=== PATIENT | male | born 1975 | race Caucasian/White ===

== ENCOUNTER 2025-02-03 10:44 | Emergency (ER) | payer OTHER, SELFPAY ==
[2025-02-03 10:58] VITALS: BP 168/109; PULSE 84; RESP 16; TEMP 36.6; O2SAT 100
[2025-02-03 11:11] VITALS: BP 152/100
--- NOTE | 2025-02-03 11:23 | ED.GENADULT ---
HPI - General Adult General Chief complaint: Unspecified Stated complaint: High Blood Pressure Time Seen by Provider: 02/03/25 11:14 Source: patient and RN notes reviewed Mode of arrival: ambulatory Limitations: no limitations History of Present Illness HPI narrative: 50-year-old male patient presents today for a check on his blood pressure. He was at the dentist this morning and his blood pressure was measured to be 190/120. He was told to leave and come get his blood pressure rechecked at Urgent Care. Patient is having no symptoms. Upon arrival, his blood pressure was 168/109. About 15 minutes later it was 152/100. Patient states he typically gets very anxious while receiving medical care. He does not have a PCP. He has never been diagnosed with hypertension Related Data Home Medications ?Medication ?Instructions ?Recorded ?Confirmed ?Last Taken ?Type No Home Medications 02/03/25 02/03/25 Unknown History Allergies Allergy/AdvReac Type Severity Reaction Status Date / Time No Known Allergies Allergy Verified 02/03/25 11:00 [facility] At time of signature, I have reviewed and agree with nursing past medical, surgical, social and family history unless otherwise noted. Please see nursing chart for further information. There is no relevant family history pertinent to the presenting complaint Exam Narrative: GENERAL: Well-appearing, well-nourished, and in no acute distress. HEAD: Normocephalic, atraumatic. EYES: EOMI. No redness or drainage. Conjunctivae normal. ENT: Mucous membranes pink and moist. NECK: Normal AROM. CHEST: No respiratory distress. Clear to auscultation. HEART: Regular rate and rhythm. No murmur appreciated. Normal peripheral pulses. EXTREMITIES: Normal range of motion. No edema. SKIN: Warm, dry, no rash. Capillary refill normal. Normal skin turgor. NEURO: No focal deficits. Alert and oriented x3. Gait steady. PSYCH: Anxiety Course Course Level of Care: Express Care Visit Vital Signs Vital signs: Vital Signs Temperature 97.8 F 02/03/25 10:58 Pulse Rate 84 02/03/25 10:58 Respiratory Rate 16 02/03/25 10:58 Blood Pressure 168/109 H 02/03/25 10:58 Pulse Oximetry 100 02/03/25 10:58 Temperature 97.8 F 02/03/25 10:58 Pulse Rate 84 02/03/25 10:58 Respiratory Rate 16 10/30/25 10:58 Blood Pressure 152/100 H 02/03/25 11:11 Pulse Oximetry 100 02/03/25 10:58 Reviewed Medical Decision Making MDM Narrative Medical decision making narrative: 50-year-old male patient presents today for a check on his blood pressure. He was at the dentist this morning and his blood pressure was measured to be 190/120. He was told to leave and come get his blood pressure rechecked at Urgent Care. Patient is having no symptoms. Upon arrival, his blood pressure was 168/109. About 15 minutes later it was 152/100. Patient states he typically gets very anxious while receiving medical care. He does not have a PCP. He has never been diagnosed with hypertension. Normal physical exam aside from obvious anxiety. Differential Diagnosis Differential Diagnosis: Anxiety, hypertension, hypertensive urgency, hypertensive emergency Vital Signs Vital Signs: Vital Signs Temperature 97.8 F 02/03/25 10:58 Pulse Rate 84 02/03/25 10:58 Respiratory Rate 16 02/03/25 10:58 Blood Pressure 168/109 H 02/03/25 10:58 Pulse Oximetry 100 02/03/25 10:58 Temperature 97.8 F 02/03/25 10:58 Pulse Rate 84 02/03/25 10:58 Respiratory Rate 16 02/03/25 10:58 Blood Pressure 152/100 H 02/03/25 11:11 Pulse Oximetry 100 02/03/25 10:58 Critical Care Time Critical Care Time Critical Care Time: No Discharge Plan Discharge Clinical Impression: Elevated blood pressure reading without diagnosis of hypertension Patient Disposition: Home Condition: Stable Instructions: Hypertension (ED) Additional Instructions: Your blood pressure reading before discharge is 152/100, which is still a bit elevated from normal range. Please call and make an initial appointment with a new PCP for follow-up. Patient Language: Azerbaijani Prescriptions: No Action No Home Medications Follow-up/Referrals: PHYSICIAN,LOST CHARGE CARD CLERK [Primary Care Provider, Internal Medicine] Time of Disposition: 11:28
== END 2025-02-03 11:33 | disposition home or self-care (01) ==
PROVIDERS: Emergency Provider Nurse Practitioner
DX: R03.0 Elevated blood-pressure reading, without diagnosis of hypertension (principal)
CPT/HCPCS: 99202; G0463